=== PATIENT | female | born 1955 | race Caucasian/White ===

== ENCOUNTER 2016-12-16 06:51 | Inpatient (IN) | payer OTHER, MEDICAID ==
[~2016-12-16] VITALS: Ht 160 cm; Wt 105.7 kg
--- NOTE | 2016-12-16 07:09 | NUR ---
DR. LOYD AT BEDSIDE FOR MSE
--- NOTE | 2016-12-16 07:11 | NUR ---
PT TO BED 11 FOR C/O COUGH, HEADACHE, FEELING SOB WHILE WALKING AND COUGHING AND THIGH/GROIN PAIN, PT REPORTS COUGH AND "SPITTING UP" X 2.5 DAYS, STS HX OF COPD AND ADMITS TO STILL SMOKING, PT REPORTS APPROX 40+ YEARS AND SMOKES APROX 5 CIGARRETTES A DAY, PT REPORTS SHE SAW HER MD FOR HER GROIN PAIN AND WAS INFORMED "MY LIGAMENT WAS TORE OR SOMETHING SINCE MY " PT AAOX4, DENIES RECENT TRAUMA FALL OR INJURY, PT IN NO ACUTE DISTRESS, CALL LIGHT WITHIN REACH, WILL CONTINUE TO MONITOR
--- NOTE | 2016-12-16 07:26 | NUR ---
RT AT BEDSIDE TO ADMINISTER BREATHING TX
--- NOTE | 2016-12-16 08:31 | NUR ---
DR. LOYD AT BEDSIDE DISCUSSING POC WITH PT AT THIS TIME
--- NOTE | 2016-12-16 08:39 | NUR ---
RT AT BEDSIDE TO ADMINISTER SECOND ORDERED BREATHING TX AT THIS TIME, PT SITTING UP IN BED IN A POSITION OF COMFORT, RESP EVEN AND UNLABORED, IN NO ACUTE DISTRESS, WILL CONTINUE TO MONITOR
--- NOTE | 2016-12-16 09:41 | NUR ---
DR. LOYD AT BEDSIDE FOR RE-EVAL
--- NOTE | 2016-12-16 09:47 | NUR ---
PER DR. LOYD FOR NC TO BE REMOVED TO SEE HOW PT IS ON ROOM AIR, PT O2 SAT RANGING FROM 93-94%
--- NOTE | 2016-12-16 10:13 | NUR ---
DR. LOYD AT BEDSIDE DISCUSSING POC WITH PT REGARDING ADMISSION
[2016-12-16] MEDS ORDERED: APAP/OXYCODONE1 TA3 PO (10:24)
[2016-12-16] MEDS ORDERED: NEU300 PO (10:24)
[2016-12-16] MEDS ORDERED: ANORO ELLIPTA1 POW IH (10:25)
[2016-12-16] MEDS ORDERED: VENTOLIN H0.09 MG/A1 IH (10:25)
[2016-12-16 11:02] LABS: BASOPHIL % 0.2 % (0-2); PLATELET COUNT 219 x10^3mcL (130-400); RED CELL DISTRIBUTION WIDTH 14.9 % (11.5-14.5)
--- NOTE | 2016-12-16 11:04 | NUR ---
REPORT GIVEN TO KEERTHI GARCIA TELE FLOOR TO ASSUME CARE OF PT AFTER TRANSPORT
[2016-12-16 11:06] LABS: microscopic required? YES; urine erythrocyte 1+ (NEGATIVE)
[2016-12-16 11:08] LABS: CALCIUM 8.7 mg/dL (8.5-10.1); CARBON DIOXIDE 24.2 mmol/L (21-32); CHLORIDE SERUM 106 mmol/L (98-107); CREATININE SERUM 0.9 mg/dL (0.6-1.0); GFR1 > 60 mL/min; GLUCOSE SERUM 142 mg/dL (74-106); POTASSIUM SERUM 3.7 mmol/L (3.5-5.1); SODIUM SERUM 141 mmol/L (136-145)
[2016-12-16 11:10] LABS: AMPHETAMINE QUAL UR NONE DETECTED (NEG <=1000)
[2016-12-16] MEDS ORDERED: ALPRAZOLAM1 MG PO (11:10)
[2016-12-16] MEDS ORDERED: AMLODIPINE BESY10 M2 PO (11:10)
[2016-12-16] MEDS ORDERED: OXYCODONE HYDRO30 MG PO (11:10)
[2016-12-16] MEDS ORDERED: TIZANIDINE4 M1 PO (11:11)
[2016-12-16] MEDS ORDERED: AMITRIPTYLINE H50 MG PO (11:12)
[2016-12-16] MEDS ORDERED: ALENDRONATE SOD70 M2 PO (11:12)
[2016-12-16 11:13] LABS: ALBUMIN 4.1 g/dL (3.4-5.0); ALKALINE PHOSPHATASE 104 U/L (46-116); ALT/SGPT 30 U/L (14-59); AST/SGOT 20 U/L (15-37); BILIRUBIN TOTAL 0.24 mg/dL (0.20-1.00); TOTAL PROTEIN, SERUM 7.8 g/dL (6.4-8.2)
[2016-12-16] MEDS ORDERED: LISINOPRIL10 MG PO (11:14)
[2016-12-16] MEDS ORDERED: ATORVASTATIN CA40 M1 PO (11:15)
[2016-12-16] MEDS ORDERED: OMEPRAZOLE40 M1 PO (11:15)
[2016-12-16] MEDS ORDERED: DICLOFENAC SODI75 MG PO (11:16)
[2016-12-16 11:33] LABS: T3 TOTAL 1.06 ng/mL
[2016-12-16 11:42] LABS: MAGNESIUM 2.3 mg/dL (1.8-2.4); PHOSPHOROUS 2.9 mg/dL (2.5-4.9)
[2016-12-16 11:43] LABS: CHOLESTEROL/HDL RATIO 5.9
[2016-12-16 11:52] LABS: FREE THYROXINE INDEX 2.9 ug/dL (1.4-4.5); T4(THYROXINE) 8.5 ug/dL (4.7-13.3)
[2016-12-16 11:56] VITALS: BP 160/60
--- NOTE | 2016-12-16 12:00 | NUR ---
RECEIVED PATIENT FROM ER. ALERT/ORIENTED X4. TELE #16; SR; HR = 89. B/P = 160/60 W/ BIG CUFF. BREATHING SOUND DIMINISHED SWATHI, WHEEZING SOUND TO KERRI NOTED. O2 SAT 96% ON 4L VIA N/C. IVF OF NS 75CC/HR. IV SITE TO R HAND INTACT. NO EDEMA NOTED. CHRONIC BACK AND LEGS PAIN, USE CANE AT HOME. NEED ASSIST TO BRP. CALL LIGHT IN REACH.
--- NOTE | 2016-12-16 12:24 | NUR ---
echocardiogram pending -doctor with patient
--- NOTE | 2016-12-16 13:30 | NUR ---
TOLERATED LATE LUNCH. C/O BACK AND LEGS PAIN ON 09/19; OXYCONTIN 10MG PO GIVEN.
[2016-12-16 15:30] VITALS: BP 167/61
[2016-12-16 16:00] VITALS: BP 162/114
--- NOTE | 2016-12-16 16:42 | NUR ---
NOTIFIED DR. QUINTERO WITH PATIENT'S LACTIC ACID =4.5, INCREASED FROM 2.1.
[2016-12-16 17:25] VITALS: BP 104/62
--- NOTE | 2016-12-16 17:30 | NUR ---
B/P = 138/48; NOTIFIED TO DR. ANTHONY. LISINOPRIL 20MG AT 1730 HOLD.
[2016-12-16 17:38] VITALS: BP 138/48
--- NOTE | 2016-12-16 18:00 | NUR ---
C/O LEGS PAIN ON 08/19; NORCO 7.5/325 PO GIVEN.
--- NOTE | 2016-12-16 19:42 | NUR ---
RECEIVED PATIENT IN BED AWAKE, ALERT AND ORIENTED WITH NO SIGN OF ACUTE RESPIRATORY DISTRESS ON O2 AT 4L VIA NC, RT PROTOCOL. BREATHING EASY AND NONLABOR SATTING AT 99%, TELE# 16 NSR ON MONITOR. DENIES CHEST DISCOMFORT. IV TO RH INTACT AND INFUSING WELL. WILL CONTINUE TO MONITOR. CALL LIGHT WITHIN REACH.
--- NOTE | 2016-12-16 19:51 | NUR ---
C/O HEADACHE MEDICATED WITH TYLENOL 650MG PO PRESCRIBED. WILL CONTINUE TO MONITOR.
[2016-12-16 21:06] VITALS: BP 117/57
--- NOTE | 2016-12-17 02:14 | NUR ---
SLEEPING THIS TIME BREATHING EASYA ND NONLABOR.WILL CONTINUE TO MONITOR.
--- NOTE | 2016-12-17 05:07 | NUR ---
SLEPT FAIRLY, NO SIGN OF RESPIRATORY DISTRESS NOTED THE ENTIRE SHIFT. CHECKED AT INTERVALS FOR NEEDS AND SAFETY.
[2016-12-17 06:04] VITALS: BP 141/56
[2016-12-17 06:04] LABS: BASOPHIL % 0.4 % (0-2); PLATELET COUNT 229 x10^3mcL (130-400)
[2016-12-17 06:32] LABS: CARBON DIOXIDE 25.4 mmol/L (21-32); CHLORIDE SERUM 109 mmol/L (98-107); CREATININE SERUM 0.9 mg/dL (0.6-1.0); GFR1 > 60 mL/min; GLUCOSE SERUM 161 mg/dL (74-106); POTASSIUM SERUM 3.8 mmol/L (3.5-5.1); SODIUM SERUM 144 mmol/L (136-145)
[2016-12-17 06:45] LABS: RED CELL DISTRIBUTION WIDTH 15.4 % (11.5-14.5)
--- NOTE | 2016-12-17 08:00 | NUR ---
ALERT/ORIENTED X4. TELE#16=SR; HR = 71. DENIED CHEST PAIN. NO SOB ON RESTING. O2 SAT 94% ON 4L VIA N/C. BREATHING SOUND DIMINISHED SWATHI W/ WHEEZING SOUND AND FINE CRACKLES TO RT SITE. RT PROTOCOL. DRY COUGHING. DENIED PAIN NOW. IVF OF NS 20CC/HR. IV SITE TO R HAND INTACT. GENERAL WEAKNESS. CALL LIGHT IN REACH.
--- NOTE | 2016-12-17 08:20 | NUR ---
PT ON N/C 4LPM PRE HHN TX SPO2 99%, POST HHN TX TITRATED FLOW TO 3LPM, WILL CONTINUE TO MONITOR.
--- NOTE | 2016-12-17 08:32 | NUR ---
REPORTED TO DR. MADSEN WITH PATIENT'S WBC =18.3 TODAY.
--- NOTE | 2016-12-17 09:00 | NUR ---
DR. CHACON AND MEDICAL TEAM MADE MORNING ROUND. PLAN OF CARE DISCUSSED WITH PATIENT, INCLUDED CONTINUE TREATMENT OF RESP INFECTION AND DYSFUNCTION. PATIENT AGREED WITH PLAN OF CARE.
[2016-12-17 09:22] VITALS: BP 120/43
[2016-12-17 13:10] VITALS: BP 149/65
[2016-12-17 17:40] VITALS: BP 111/56
--- NOTE | 2016-12-17 18:37 | NUR ---
CONDITION IMPROVED. NO SOB ON O2 3L VIA N/C. TOLERATED DIET WELL, AFEBRIL. BRP WITH ASSIST. STATED LEGS PAIN ON TOLERATED LEVEL NOW. ENDORSED CARE TO [facility] NURSE.
--- NOTE | 2016-12-17 19:16 | NUR ---
RECEIVE DPATIENT IN BED AWAKE, ALERT AND ORINTE NO SIGN OF ACUTE RESPIRATORY DISTRESS NOTED. TELE# 16 NSR ON MONITOR, DENIES CHEST DISCOMFORT. PT ON HEPARIN 5000 UNITS SQ. ON O2 AT 4L VIA NC WITH WHEEZING NOTD SATTING AT 98%. IV TO RH INTACTA ND INFUSING WELL. WILL CONTINUE TO MONITOR. CALL LIGHT WITHIN REACH.
[2016-12-17 21:15] VITALS: BP 130/58
--- NOTE | 2016-12-18 01:30 | NUR ---
SLEEPING THIS TIME BREATHING EASYA ND NONLABOR. WILL CONTINUE TO MONITOR.
--- NOTE | 2016-12-18 05:20 | NUR ---
AWAKE C/O LEGPAIN AND BACKPAIN MEDICATED WITH OXYCODONE PO PRESCRIBED. ALL NEEDS ATTENDED.
[2016-12-18 06:02] VITALS: BP 94/67
[2016-12-18 07:04] LABS: BASOPHIL % 0.1 % (0-2); PLATELET COUNT 214 x10^3mcL (130-400)
[2016-12-18 07:14] LABS: RED CELL DISTRIBUTION WIDTH 15.4 % (11.5-14.5)
[2016-12-18 07:29] LABS: CALCIUM 8.5 mg/dL (8.5-10.1); CHLORIDE SERUM 111 mmol/L (98-107); CREATININE SERUM 0.8 mg/dL (0.6-1.0); GFR1 > 60 mL/min; GLUCOSE SERUM 117 mg/dL (74-106); POTASSIUM SERUM 3.9 mmol/L (3.5-5.1); SODIUM SERUM 146 mmol/L (136-145)
--- NOTE | 2016-12-18 08:01 | NUR ---
PT ALERT, AWAKE, ORIENTED. PT EXHIBITS SIGNS OF SOB, STATES SOB AFTER AMBULATING TO AND FROM THE RESTROOM. CURRENTLY ON 4L O2/NC. EXPIRATORY WHEEZING THROUGHOUT LOBES BILATERALLY. RESPIRATORY EFFORT SLIGHTLY LABORED. DENIES CHEST PAIN, PRESSURE. BOWEL SOUNDS ACTIVE X 4 TO AUSCULTATION, STATES LBM 12/15/16. URINATED 12/18/16. ABDOMEN SOFT, ROUND, NONTENDER. SKIN CDI THROUGHOUT. PULSES STRONG THROUGHOUT. REINFORCED IS TEACHING, PATIENT RETURN DEMONSTRATED, BECAME SOB UPON RETURN DEMONSTRATION. SMOKING CESSATION TEACHING REINFORCED. IV SITE REMAINS CDI FREE FROM REDNESS OR SIGNS OF INFILTRATION. BED IN LOWEST POSITION, CALL LIGHT WITHIN REACH, 2 RAILS UP.
[2016-12-18 09:19] VITALS: BP 145/57
--- NOTE | 2016-12-18 11:24 | NUR ---
PT AWAKE, ALERT. FAMILY AT BEDSIDE. DENIES PAIN, DENIES SOB. ACCUCHECK PERFORMED WAS 140 NO INSULIN INDICATED. BED IN LOWEST POSITION, CALL LIGHT WITHIN REACH, 2 RAILS UP. CURRENTLY WATCHING TV.
--- NOTE | 2016-12-18 12:45 | NUR ---
SITTING BEDSIDE EATING LUNCH, NO DISTRESS NOTED.
--- NOTE | 2016-12-18 13:40 | NUR ---
PT CURRENTLY SLEEPING. RESPIRATIONS NOTED. BED IN LOWEST POSITION, CALL LIGHT WITHIN REACH, 2 RAILS UP.
[2016-12-18 13:49] VITALS: BP 149/70
[2016-12-18 16:22] VITALS: BP 128/49
--- NOTE | 2016-12-18 16:25 | NUR ---
PT FOUND ON ROOM AIR SP02 91%, HHN TX GIVEN AND SATURATION IMPROVED TO 96%. NEW ORDER RECEIVED TO TITRATE PT OFF OXYGEN, N/C 3 L/MIN TITRATED TO 2 L/MIN AND KEERTHI GUTIERREZ NOTIFIED.
--- NOTE | 2016-12-18 17:00 | NUR ---
RT SPOT CHECKED O2 SAT, 93% ON ROOM AIR. CONTINUE O2 AT 2L VIA NC.
--- NOTE | 2016-12-18 17:50 | NUR ---
PT CURRENTLY EATING DINNER AT SIDE OF BED. FAMILY AT BEDSIDE. STATED PAIN WAS 9/10. MEDICATED WITH NORCO PRN. PAIN 4/10 AFTER REASSESSMENT. IN NO APPARENT DISTRESS. BED IN LOWEST POSITION, CALL LIGHT WITHIN REACH, 2 RAILS UP.
--- NOTE | 2016-12-18 20:00 | NUR ---
RECEIVED PT AWAKE AND ALERT. AOX4. VERBAL WITH CLEAR SPEECH. ON O2 2L VIA NC 96%. LUNGS DIMINISHED. NO S/S OF RESPIRATORY DISTRESS NOTED. NO COUGHING NOTED AT THIS TIME. ON TELE 16, NSR. DENIES ANY CHEST PAIN. ABD SOFT AND ROUND. BOWEL SOUNDS ACTIVE. SKIN WARM AND DRY. IV TO RIGHT HAND PATENT AND INTACT. IV NS INFUSING WELL. NO S/S OF INFECTION NOTED. NO EDEMA NOTED. PT C/O 8/10 BACK PAIN. PRN OXYCODONE 10 MG PO GIVEN. CALL LIGHT WITHIN REACH. WILL CONTINUE TO MONITOR.
[2016-12-18 20:57] VITALS: BP 138/40
--- NOTE | 2016-12-18 21:15 | NUR ---
PT RESTING IN BED WITH EYES CLOSED. NO S/S OF PAIN NOTED. RECEIVED ROUTINE MEDICATIONS AND SWALLOWED WITHOUT DIFFICULTY. ON BIPAP 97%. NO S/S OF RESPIRATORY DISTRESS NOTED. CALL LIGHT WITHIN REACH. WILL CONTINUE TO MONITOR.
--- NOTE | 2016-12-19 00:07 | NUR ---
PT RESTING IN BED WITH EYES CLOSED. BREATHING EQUAL AND UNLABORED. REMAINS ON BIPAP. NO S/S OF RESPIRATORY DISTRESS NOTED. IV PATENT AND INFUSING WELL. RESTING COMFORTABLY WITH RELAXED FACIAL FEATURES. CALL LIGHT WITHIN REACH. WILL CONTINUE TO MONITOR.
[2016-12-19 05:50] VITALS: BP 167/75
--- NOTE | 2016-12-19 06:15 | NUR ---
PT SLEPT WELL THROUGHOUT THE NIGHT. BIPAP ON FOR COUPLE HOURS. ON O2 2L VIA NC AT THIS TIME. NO S/S OF RESPIRATORY DISTRESS NOTED. IV PATENT AND NS INFUSING WELL. PT C/O 08/19 BACK PAIN. PRN NORCO 7.5 MG PO GIVEN. RECEIVED ROUTINE MEDICATIONS AND SWALLOWED WITHOUT DIFFICULTY. ALSO, GIVEN ROBITUSSIN 10 ML PO PER REQUEST. CALL LIGHT WITHIN REACH. WILL CONTINUE TO MONITOR.
[2016-12-19 06:17] LABS: BASOPHIL % 0.3 % (0-2); PLATELET COUNT 218 x10^3mcL (130-400)
[2016-12-19 06:25] LABS: RED CELL DISTRIBUTION WIDTH 15.7 % (11.5-14.5)
[2016-12-19 06:33] LABS: CALCIUM 8.4 mg/dL (8.5-10.1); CARBON DIOXIDE 28.6 mmol/L (21-32); CHLORIDE SERUM 109 mmol/L (98-107); CREATININE SERUM 0.8 mg/dL (0.6-1.0); GFR1 > 60 mL/min; GLUCOSE SERUM 94 mg/dL (74-106); MAGNESIUM 2.2 mg/dL (1.8-2.4); PHOSPHOROUS 4.4 mg/dL (2.5-4.9); POTASSIUM SERUM 3.5 mmol/L (3.5-5.1); SODIUM SERUM 145 mmol/L (136-145)
--- NOTE | 2016-12-19 07:23 | NUR ---
PT LAYING IN BED WITH EYES OPEN. IN NO APPARENT DISTRESS. DENIES PAIN AT THIS TIME. BED IN LOWEST POSITION, CALL LIGHT WITHIN REACH, 2 RAILS UP.
[2016-12-19 09:30] VITALS: BP 163/69
--- NOTE | 2016-12-19 10:56 | NUR ---
PT WAS AMBULATING HALLS WITH PT USING CANE. DENIES SOB AT THIS TIME. O2 SAT 95% ON RA.
[2016-12-19 11:54] VITALS: BP 148/72
[2016-12-19] MEDS ORDERED: LAC PO (12:45)
[2016-12-19] MEDS ORDERED: LEVOFLOXACIN500 M1 PO (12:51)
[2016-12-19] MEDS ORDERED: MEDDP PO (12:52)
[2016-12-19] MEDS ORDERED: COUGH100 MG/5 M PO (12:55)
[2016-12-19 15:04] VITALS: BP 148/72
--- NOTE | 2016-12-19 15:38 | NUR ---
DISCHARGE INFORMATION PROVIDED TO PATIENT, PATIENT DEMONSTRATES UNDERSTANDING ABOUT DISEASE PROCESS, SMOKING CESSATION, FOLLOW UP APPOINTMENTS, AND DISCHARGE MEDICATIONS. IV DC'D CATHETER TIP INTACT, TELE REMOVED, ID REMOVED, WHEELCHAIRED TO FRONT LOBBY VIA WHEELCHAIR. DAUGHTER TO TRANSPORT PATIENT HOME.
--- NOTE | 2016-12-19 16:33 | NUR ---
OFF FLOOR VIA WHEELCHAIR WITH RN. ALL BELONGINGS WITH PATIENT. FRIEND TO DRIVE PATIENT HOME IN PATIENTS VAN.
--- NOTE | 2016-12-19 18:28 | NUR ---
PHYSICAL THERAPY DAILY NOTES CO-SIGN All documentation done by the Labor Crew Supervisor for 12/19/16 has been reviewed. I agree with the documentation. Reviewed/Co-Signed by: Kanika Guerrero DPT Documentation Done by: Av Zuñiga PTA Patient vent[place] tx well, progressing towards goals, improved gait/balance. Cont with PT POC as ventura/safe.
== END 2016-12-19 16:27 | disposition home health service (06) | DRG 190 ==
LOC: ED 06:51 → DU 10:15
PROVIDERS: Emergency Medicine; ADMIT Family Medicine Sports Medicine
DX: J44.1 Chronic obstructive pulmonary disease with (acute) exacerbation (principal); J96.01 Acute respiratory failure with hypoxia; N39.0 Urinary tract infection, site not specified; Z68.41 Body mass index [BMI] 40.0-44.9, adult; M45.9 Ankylosing spondylitis of unspecified sites in spine; F41.9 Anxiety disorder, unspecified; E66.01 Morbid (severe) obesity due to excess calories; K21.9 Gastro-esophageal reflux disease without esophagitis; I16.0 Hypertensive urgency; R73.03 Prediabetes; R31.9 Hematuria, unspecified; E78.5 Hyperlipidemia, unspecified; F17.210 Nicotine dependence, cigarettes, uncomplicated; Z63.4 Disappearance and death of family member
CPT/HCPCS: 36600; 82962; 83880; 84439; 97110-GP; 97116-GP; 97530-GP; 99406; J1644; J1956; J2930; J7030; J7512; J7613; J7620; J7626; J7644; Q0092

== ENCOUNTER 2018-06-26 14:43 | Emergency (ER) | payer OTHER, MEDICAID ==
[~2018-06-26] VITALS: Ht 160 cm; Wt 103.4 kg
[~2018-06-26 14:43] MED LIST: ALENDRONATE SOD70 M2 PO; ALPRAZOLAM1 MG PO; AMITRIPTYLINE H50 MG PO; AMLODIPINE BESY10 M2 PO; ANORO ELLIPTA1 POW IH; APAP/OXYCODONE1 TA3 PO; ATORVASTATIN CA40 M1 PO; COUGH100 MG/5 M PO; DICLOFENAC SODI75 MG PO; LAC PO; LEVOFLOXACIN500 M1 PO; LISINOPRIL10 MG PO; MEDDP PO; NEU300 PO; OMEPRAZOLE40 M1 PO; OXYCODONE HYDRO30 MG PO; TIZANIDINE4 M1 PO; VENTOLIN H0.09 MG/A1 IH
[2018-06-26 14:50] VITALS: Ht 160 cm; Wt 103.4 kg
[2018-06-26 16:20] VITALS: BP 134/72
== END 2018-06-26 16:20 | disposition home or self-care (01) ==
LOC: ED 14:43
DX: R00.2 Palpitations (principal); J44.9 Chronic obstructive pulmonary disease, unspecified; M79.7 Fibromyalgia; I10 Essential (primary) hypertension; M45.9 Ankylosing spondylitis of unspecified sites in spine; Z98.890 Other specified postprocedural states

== ENCOUNTER → 2018-08-18 | Outpatient (CLI) | payer OTHER, MEDICAID | END | disposition home or self-care (01) | LOC: RD 09:56 | DX: G89.4 Chronic pain syndrome (principal) ==